=== PATIENT | male | born 1985 | race Caucasian/White ===

== ENCOUNTER → 2017-06-27 | Outpatient (CLI) | payer BC ==
--- NOTE | ~2017-06-27 | CT2 ---
[facility] A Service [facility] RADIOLOGY TEXT RESULTS PATIENT: BERTA STYLES LOCATION: [facility] : 89 UNIT #: [id number] AGE: [address]: Wandy Primary Care Physician SEX: M ORDER DR: [id number] [address] [id number] O MR#: [id number] Acc #: [id number] NAME: BERTA STYLES : 1985 SEX: M STUDY DATE/TIME: 06/27/2017 5:00 UNIT: [facility] ROOM: STUDY DESCRIPTION: CT Abd and Pelv W Cont Attending Physician: Wandy Primary Care Physician Ordering Physician: Jg Verma Primary Care Physician: Wandy Primary Care Physician MEDICAL IMAGING REPORT This report is preliminary unless electronic signature is present EXAM CT abdomen and pelvis with contrast. HISTORY History of abdominal pain for 2 weeks and loose stools for 3 months. COMPARISON No comparison. TECHNIQUE The patient was given 100 cc of Isovue 370 and axial 5 mm images were obtained through the abdomen and pelvis. Sagittal and coronal reconstructions were reviewed. This CT exam was performed with one or more of the following radiation dose reduction techniques: automatic exposure control, adjustment of mA and/or kV according to patient size, and iterative reconstruction. FINDINGS The lung bases are clear. The liver, gallbladder, spleen, pancreas, adrenal glands and kidneys are normal. The aorta is normal in size. There is on adenopathy. The valves are normal. The appendix is normal. Bladder and prostate gland are normal. The bones are unremarkable. IMPRESSION 1. Study is normal. No evidence of colitis. The appendix is normal. Dictated by... Josr De La Rosa M.D. [facility] A Service [facility] RADIOLOGY TEXT RESULTS PATIENT: BERTA STYLES LOCATION: [facility] : 89 UNIT #: [id number] AGE: [address]: Wandy Primary Care Physician SEX: M ORDER DR: THIS IS AN ELECTRONICALLY VERIFIED REPORT Josr De La Rosa M.D. at 06/27/2017 1:48 PM VADIM/wai TD: 06/27/2017 11:06 JOB #: [id number] MEDICAL IMAGING REPORT Page 1 of 1 COPY
== END | disposition home or self-care (01) ==
LOC: CRAD 04:06
DX: R10.9 Unspecified abdominal pain (principal); R19.5 Other fecal abnormalities
CPT/HCPCS: 74177; Q9967